=== PATIENT | female | born 1950 | race Caucasian/White ===

== ENCOUNTER → 2016-10-19 | Outpatient (CLI) | payer MEDICARE, BC ==
[~2016-10-19] MED LIST: AMBIEN CR 12.12.5 MG PO; ASPIRIN E.C. 8181 MG PO; CLARITIN 1010 MG/TAB PO; COZAAR 50MG50 MG/TAB PO; FLEXERIL 1010 MG/TAB PO; IMDUR 30MG30 MG/TAB PO; KLOR-CON M2020 MEQ PO; LASIX 20MG TABL20 MG PO; LEXAPRO 10MG10 MG PO; MEDROL 4MG DOSPA4 MG PO; NATURE'S BLEN5000 IU PO; NITROSTAT0.6 MG SL; NORCO 325 MG-51 TAB PO; NORCO 325 MG-7.1 TAB PO; PERCOCET 325 MG1 TA2 PO; PLAVIX 75MG TAB75 MG PO; PRILOSEC 20MG20 MG PO; PRINIVIL10 MG PO; PROAIR HFA0.09 MG/AC IH; REGLAN 10MG10 MG/TAB PO; REGLAN 5MG T5 MG/TAB PO; ROXICODONE 55 MG/TAB PO; TENORMIN 2525 MG/TAB PO; TORADOL 10MG TA10 MG PO; ULTRAM 50MG TAB50 MG PO; VENLAFAXINE225 MG PO; ZOCOR 40MG40 MG PO; ZOFRAN8 MG PO
== END ==
LOC: COL.RAD 12:20
DX: M51.16 Intervertebral disc disorders with radiculopathy, lumbar region (principal); G89.29 Other chronic pain